=== PATIENT | female | born 1980 | race Caucasian/White ===

== ENCOUNTER 2024-05-08 09:21 | Emergency (ER) | payer OTHER ==
[~2024-05-08] VITALS: Ht 175.3 cm; Wt 92.0 kg
[2024-05-08 09:34] VITALS: BP 145/93; PULSE 93; RESP 16; TEMP 98.3; O2SAT 98
[2024-05-08] MEDS: KETOROLAC TROMETHAMINE 30 MG/ML VIAL IM ONE (11:03)
[2024-05-08] MEDS: APIXABAN 5 MG TABLET PO ONE (12:52)
[2024-05-08] MEDS ORDERED: APIX5TAB PO (12:53)
[2024-05-08] MEDS ORDERED: ACET-3385 PO (12:53)
== END 2024-05-08 13:17 | disposition home or self-care (01) ==
LOC: EMS 09:21
DX: I82.432 Acute embolism and thrombosis of left popliteal vein (principal); Z88.0 Allergy status to penicillin; Z90.89 Acquired absence of other organs; Z86.718 Personal history of other venous thrombosis and embolism
CPT/HCPCS: 99285; 93971; 73562; 73590; 96372; J1885